=== PATIENT | female | born 1990 | race Caucasian/White ===

== ENCOUNTER 2022-02-16 17:03 | Emergency (ER) | payer MEDICAID, SELFPAY ==
[2022-02-16 17:03] VITALS: PULSE 114; RESP 16; TEMP 36.6; O2SAT 97; BMI 22.4
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
== END 2022-02-16 18:44 | disposition home or self-care (01) ==
PROVIDERS: Emergency Provider Emergency Medicine; Visit Provider Emergency Medicine
DX: Z76.0 Encounter for issue of repeat prescription (principal)
CPT/HCPCS: 99282